=== PATIENT | female | born 1965 | race Caucasian/White ===

== ENCOUNTER 2023-11-07 10:45 | Outpatient (RCR) | payer OTHER, SELFPAY | END 2023-11-07 23:59 | disposition home or self-care (01) | LOC: PURB 10:45 | PROVIDERS: FAMILY PHYSICIAN Family Medicine | DX: J45.909 Unspecified asthma, uncomplicated (principal); R06.09 Other forms of dyspnea; U09.9 Post COVID-19 condition, unspecified | CPT/HCPCS: G0237; G0239 ==

== ENCOUNTER 2023-12-10 10:45 | Outpatient (RCR) | payer OTHER, SELFPAY | END 2023-12-11 09:10 | disposition home or self-care (01) | LOC: PURB 10:45 | PROVIDERS: FAMILY PHYSICIAN Family Medicine | DX: J45.909 Unspecified asthma, uncomplicated (principal); R06.09 Other forms of dyspnea; U09.9 Post COVID-19 condition, unspecified | CPT/HCPCS: G0239 ==

== ENCOUNTER 2024-01-09 10:45 | Outpatient (RCR) | payer OTHER, SELFPAY | END 2024-01-10 09:02 | disposition home or self-care (01) | LOC: PURB 10:45 | PROVIDERS: ATTENDING PHYSICIAN Internal Medicine; FAMILY PHYSICIAN Family Medicine | DX: J45.998 Other asthma (principal); U09.9 Post COVID-19 condition, unspecified | CPT/HCPCS: G0239 ==

== ENCOUNTER 2024-01-16 10:45 | Outpatient (RCR) | payer OTHER, SELFPAY | END 2024-01-22 09:50 | disposition home or self-care (01) | LOC: PURB 10:45 | PROVIDERS: ATTENDING PHYSICIAN Internal Medicine; FAMILY PHYSICIAN Family Medicine | DX: J45.909 Unspecified asthma, uncomplicated (principal); R06.09 Other forms of dyspnea; U09.9 Post COVID-19 condition, unspecified | CPT/HCPCS: G0239 ==

== ENCOUNTER → 2024-04-13 10:07 | Outpatient (REF) | payer OTHER, SELFPAY | LOC: HWWDC 10:07 | PROVIDERS: ATTENDING PHYSICIAN Family Medicine | DX: Z12.31 Encounter for screening mammogram for malignant neoplasm of breast (principal) | CPT/HCPCS: 77063; 77067 ==